=== PATIENT | male | born 1985 | race Hispanic/Latino ===

== ENCOUNTER 2019-09-14 14:37 | Emergency (ER) | payer OTHER ==
[2019-09-14] MEDS ORDERED: KETOROLAC TROMETHAMINE 60 MG/2 ML VIAL ONE (15:21)
[2019-09-14] MEDS ORDERED: LIDOCAINE HCL-MPF 1% 2ML VIAL ONE (15:21)
[2019-09-14] MEDS ORDERED: ACETAMINOPHEN-CODEINE 300/30MG TAB ONE (15:22)
[2019-09-14] MEDS ORDERED: CEFTRIAXONE SODIUM 1 GM ONE (15:22)
== END 2019-09-14 15:53 | disposition home or self-care (01) ==
LOC: EDH 14:37
DX: K02.9 Dental caries, unspecified (principal)
CPT/HCPCS: 87880; 96372 ×2; 99284; J0696; J1885; J3490

== ENCOUNTER 2022-01-09 19:54 | Emergency (ER) | payer SELFPAY ==
[~2022-01-09] VITALS: Ht 152.4 cm; Wt 85.3 kg
[2022-01-09 20:30] LABS: BASOPHILS % (AUTO) 0.3 % (0.0-5.0); EOSINOPHILS % (AUTO) 1.2 % (0.0-8.0); HEMATOCRIT 40.3 % (42-54); LYMPHOCYTES % (AUTO) 16.6 % (21.0-51.0); MEAN CORPUSCULAR HEMOGLOBIN 31.3 pg (27.0-33.0); MEAN CORPUSCULAR VOLUME 89.4 fL (79-99); MONOCYTES % (AUTO) 7.7 % (3.0-13.0); NEUTROPHILS % (AUTO) 73.7 % (40.0-77.0); PLATELET COUNT (AUTO) 290 K/uL (130-400); RED BLOOD CELL COUNT(AUTO) 4.51 MIL/uL (4.50-6.20); RED CELL DISTRIBUTION WIDTH 12.5 % (11.0-15.5); WHITE BLOOD COUNT (AUTO) 10.3 K/uL (4.8-10.8)
[2022-01-09] MEDS ORDERED: IBUPROFEN 600 MG TABLET PO ONE (20:30)
[2022-01-09] MEDS ORDERED: SULFAMETHOX-TMP DS 800/160 TAB PO SCH (20:30)
[2022-01-09 20:43] LABS: POTASSIUM 3.6 mmol/L (3.5-5.1)
[2022-01-09 20:48] LABS: ALBUMIN 3.7 g/dL (3.5-5.0); BILIRUBIN,TOTAL 0.4 mg/dL (0.2-1.0); TOTAL PROTEIN, SERUM 7.5 g/dL (6.0-8.3)
[2022-01-09] MEDS ORDERED: SULF1TAB42 PO (21:00)
[2022-01-09] MEDS ORDERED: IBUP-2070 PO (21:00)
[2022-01-09 21:21] VITALS: BP 124/71
== END 2022-01-09 21:23 | disposition home or self-care (01) ==
LOC: EDH 19:54
DX: L02.415 Cutaneous abscess of right lower limb (principal)
CPT/HCPCS: 10060; 36415; 80053; 85025